=== PATIENT | male | born 1940 | race Caucasian/White ===

== ENCOUNTER → 2018-01-25 | Outpatient (CLI) | payer OTHER | LOC: FIMAGING 19:06 | PROVIDERS: ATTEND Family Medicine Sports Medicine | DX: J90 Pleural effusion, not elsewhere classified (principal) ==

== ENCOUNTER → 2018-02-06 | Outpatient (CLI) | payer OTHER | LOC: FIMAGING 07:19 | PROVIDERS: ATTEND Family Medicine Sports Medicine | DX: J90 Pleural effusion, not elsewhere classified (principal); I70.0 Atherosclerosis of aorta ==

== ENCOUNTER 2018-02-17 08:14 | Inpatient (IN) | payer OTHER ==
--- NOTE | 2018-02-17 08:30 | CPEKG ---
Heart Rate: 72 RR Interval: 833 P-R Interval: 156 QRSD Interval: 112 QT Interval: 384 QTC Interval: 421 P Collins: 3 QRS Collins: -61 T Wave Collins: 64 EKG Severity - ABNORMAL ECG - EKG Impression: SINUS RHYTHM EKG Impression: NONSPECIFIC IVCD WITH LAD EKG Impression: PROBABLE INFERIOR INFARCT, OLD EKG Impression: CONSIDER ANTEROSEPTAL INFARCT Electronically Signed By: Lisa Dumont 17-Feb-2018 15:01:56
--- NOTE | 2018-02-17 08:53 | EDPHY ---
H & P Stated Complaint: Sob, worse w/ exertion, R abd pain x months worse w/ movement Time Seen by Provider: 02/17/18 08:22 HPI/ROS: CHIEF COMPLAINT: Shortness of breath HISTORY OF PRESENT ILLNESS: 77-year-old male presents with shortness of breath. 2 months ago he had pneumonia, diagnosed by chest x-ray. Completed a course of abx. Since then, he has had gradually increasing shortness of breath. The shortness of breath occurs with any exertion and he is unable to do his usual activities. Associated with mild right-sided chest pain that occurs only with movement of his torso. No exertional chest pain. Outpatient CT scan on 02/06/18 revealed a large right pleural effusion. He has been referred to pulmonology and has an appointment in 1 month. Ongoing cough for 1 year. No fever. REVIEW OF SYSTEMS: complete 10 point ROS negative except at noted in the HPI - Personal History Current Tetanus/Diphtheria Vaccine: No Current Tetanus Diphtheria and Acellular Pertussis (TDAP): No - Medical/Surgical History Hx Asthma: No Hx Chronic Respiratory Disease: No Hx Diabetes: No Hx Cardiac Disease: No Hx Renal Disease: No Hx Cirrhosis: No Hx Alcoholism: No Hx HIV/AIDS: No Hx Splenectomy or Spleen Trauma: No Other PMH: NIDDM. hyperlipidemia. depression. appy - Social History Smoking Status: Former smoker (Stopped smoking 25 years ago) Additional Social History: - Physical Exam Exam: General Appearance: Alert, pleasant Eyes: Pupils equal and round, no conjunctival pallor or injection ENT, Mouth: Mucous membranes moist Neck: Normal inspection Respiratory: Decreased breath sounds on the right Cardiovascular: Regular rate and rhythm Gastrointestinal: Abdomen is soft and nontender Neurological: A&O, nonfocal exam Skin: Warm and dry, no rash Extremities: Nontender, no pedal edema Psychiatric: Mood and affect normal Constitutional: Initial Vital Signs Temperature (C) 36.8 C 02/17/18 08:17 Heart Rate 80 02/17/18 08:17 Respiratory Rate 18 02/17/18 08:17 Blood Pressure 132/77 H 02/17/18 08:17 O2 Sat (%) 90 L 02/17/18 08:17 O2 Delivery Mode Room Air O2 (L/minute) 2 Allergies/Adverse Reactions: No Known Allergies Allergy (Unverified 02/17/18 08:15) Home Medications: Medication Instructions Recorded Albuterol [Proventil Inhaler HFA 1 - 2 puffs IH Q4H #1 mdi 10/09/16 (*)] Azithromycin [Zithromax] 250 mg PO DAILY #6 tab 12/29/17 Atorvastatin Calcium [Lipitor 10 5 mg PO HS 02/17/18 mg (*)] Glimepiride [Amaryl 2 MG (*)] 2 mg PO DAILY 02/17/18 Lisinopril [Zestril 10 mg (*)] 10 mg PO DAILY 02/17/18 OLANZapine [Zyprexa] 2.5 mg PO HS 02/17/18 Medical Decision Making - Diagnostics EKG Interpretation: EKG interpreted by me reveals normal sinus rhythm, rate 72, inferior Q-waves, poor R-wave progression. Interpretation: Abnormal EKG Imaging Results: CXR: rt pleural effusion Imaging: I viewed and interpreted images myself ED Course/Re-evaluation: This pt presents with a large pleural effusion, now SOB at rest. Although this effusion occurred after pneumonia, he is afebrile/nontoxic and I do not suspect empyema. No clinical evidence for CHF. Concerning for malignancy. Given SOB and inability to do ADL's, will need thorascentesis/admission. Pt agrees with this plan. The hospitalist service was consulted for admission. Differential Diagnosis: Differential diagnosis includes though it is not limited to empyema, malignant effusion, CHF, hemothorax. - Data Points Laboratory Results: Laboratory Results 02/17/18 08:45 02/17/18 08:45 Medications Given: Discontinued Medications Acetaminophen (Tylenol) 650 mg PO Q4HRS PRN PRN Reason: Pain, Mild/Fever, Can Take PO Stop: 08/16/18 09:18 Last Admin: 02/18/18 11:58 Dose: 650 mg Atorvastatin Calcium (Lipitor) 5 mg PO HS [facility] Stop: 08/16/18 20:59 Last Admin: 02/18/18 20:02 Dose: 5 mg Azithromycin (Zithromax) 500 mg PO DAILY [facility] PRN Reason: Protocol Stop: 03/20/18 13:59 Last Admin: 02/19/18 08:01 Dose: 500 mg Glimepiride (Amaryl) 2 mg PO DAILY [facility] Stop: 08/17/18 08:59 Last Admin: 02/19/18 08:01 Dose: 2 mg Ceftriaxone Sodium/Dextrose (Rocephin 1 Gm (Premix)) 50 mls @ 100 mls/hr IV DAILY [facility] PRN Reason: Protocol Stop: 03/20/18 13:59 Last Admin: 02/19/18 08:01 Dose: 50 mls Insulin Human Lispro (Humalog Lispro) 0 unit SC TIDMEAL [facility] PRN Reason: Protocol Stop: 08/16/18 17:59 Last Admin: 02/19/18 13:00 Dose: 2 units Lisinopril (Zestril) 10 mg PO DAILY [facility] Stop: 08/17/18 08:59 Last Admin: 02/18/18 07:29 Dose: 10 mg Olanzapine (Zyprexa) 2.5 mg PO HS [facility] Stop: 08/16/18 20:59 Last Admin: 02/18/18 20:02 Dose: 2.5 mg Departure - Departure Disposition: [facility] Inpatient Acute Clinical Impression: Pleural effusion on right, Dyspnea on exertion Condition: Fair
[2018-02-17 08:56] LABS: PLATELET COUNT 259 10^3/uL (150-400)
[2018-02-17] MEDS ORDERED: ONDANSETRON DISINTEGRATING 4 MG TAB PO PRN (09:19)
[2018-02-17] MEDS ORDERED: ONDANSETRON 4 MG/2 ML VIAL IVP PRN (09:19)
[2018-02-17] MEDS ORDERED: ACETAMINOPHEN 325 MG TAB PO PRN (09:19)
[2018-02-17] MEDS ORDERED: LIDOCAINE 1% 300 MG/30 ML SDV ONE (10:34)
[2018-02-17 10:44] LABS: INR 1.16 (0.83-1.16)
--- NOTE | 2018-02-17 13:03 | PDRADPN ---
Radiology Procedure Note Date of Procedure: 02/17/18 Radiologist: Mina Parks Anesthesia: Local (Specify) Pre-op Diagnosis: parapneumonic effusion Post-op Diagnosis: same Indication: hypoxia Procedure: us guided thoracentesis Finding(s): large simple effusion (clear radha). access with 5F needle, 1500mL drained. Perhaps 100mL residual on US. Inf/Abcess present in the surg proc area at time of surgery?: No Complications: none Specimen(s): sent for lights, cell count, culture
--- NOTE | 2018-02-17 15:18 | GHP ---
[f rep st] HISTORY AND PHYSICAL DATE OF ADMISSION: 02/17/2018 CHIEF COMPLAINT: Shortness of breath, right pleural effusion. HPI: A pleasant 77-year-old male with a history of bronchitis, diabetes, hypertension with 2 months of gradual shortness of breath. He was diagnosed with pneumonia by his PCP 2 months ago and received antibiotic treatment. Since then, he has noticed progressive shortness of breath to the point where he can barely bend over without gasping for air. He cannot climb stairs due to it. He denies lower extremity or abdominal swelling. No PND. He has had a chronic cough for years, per he and his , with clear white sputum. Does report weight loss but cannot quantify. Denies fevers, chills, night sweats. He had been referred to a supervisor mending as an outpatient and has an appointment in 1 month. REVIEW OF SYSTEMS: I completed a 10-point review of systems, negative except as noted in HPI. PAST MEDICAL HISTORY: Bronchitis; diabetes, controlled on orals; hypertension. PAST SURGICAL HISTORY: Left foot surgery, tonsillectomy as a child. FAMILY HISTORY: Mother with stroke. Brother with prostate cancer. Sister with stomach cancer. SOCIAL HISTORY: Lives in [place] with his . Originally from [facility]. Has 4 children. 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 Smoked a pack to 2 for 35 years, quit 25 years ago. No alcohol or illicits. ALLERGIES: No known drug allergies. HOME MEDICATIONS: Atorvastatin 5 mg q.h.s., Amaryl 2 mg daily, Zyprexa 2.5 mg q.h.s., lisinopril 10 daily. PHYSICAL EXAM: VITAL SIGNS: Temperature 36.8, blood pressure 124/74, heart rate 90s, respirations 16, 95% on 2 L, now 90 on room air. GENERAL: He is well appearing, smiling, sitting up in bed, in no acute distress. HEENT: PERRLA. EOMI. Oropharynx clear. CV: Regular rate and rhythm. No murmurs, gallops, or rubs. No lower extremity edema. LUNGS: Decreased breath sounds at right base. No crackles or wheezing. ABDOMEN: Soft, nontender, nondistended. Positive bowel sounds. GI: Mild protrusion, right sided, not present when sitting up. No tenderness or hematoma. : No Yousif. MUSCULOSKELETAL: 5/5 upper and lower extremity strength. NEURO: 2-12 intact. PSYCH: Alert and oriented x3. LABS: WBC 7, hemoglobin 15, hematocrit 44, platelets 259. Coags: Within normal. Sodium 137, potassium 4.5, chloride 101, carbon dioxide 24, BUN 16, creatinine 0.6, glucose is 231. LFTs within normal. Albumin is 3.6, total protein 6.0. LDH is 278. BNP is 28. Chest x-ray: Personally reviewed by me. Moderate right-sided pulmonary effusion. ASSESSMENT/PLAN: 1. Right pleural effusion: Differential includes infection, heart failure versus malignancy. He does not endorse infectious symptoms at this time. He is afebrile without leukocytosis. His BNP is normal, so less indicative of heart failure. My concern would be malignancy given smoking history and weight loss. Status post thoracentesis, with 1500 mL removed. Cytology and other labs are still pending. Recent CT chest negative for mass. 2. Diabetes. Continue home medications. Sliding scale insulin here. 3. Hypertension. Lisinopril. 4. Diet. Regular. 5. Deep venous thrombosis prophylaxis. Sequential compression devices. 6. Disposition. Patient warrants observation admission given acute right pleural effusion, awaiting pleural studies, and continue pulse ox. /[id number]/MODL MTDD
[2018-02-17] MEDS ORDERED: D50W 25 GM/50 ML SYR IVP PRN (17:31)
[2018-02-17] MEDS: INSULIN LISPRO 100 UNIT/ML SC SCH (18:07)
[2018-02-17] MEDS: OLANZapine 2.5 MG TAB PO SCH (20:58)
[2018-02-17] MEDS: ATORVASTATIN CALCIUM 10 MG TAB PO SCH (20:58)
[2018-02-17] MEDS ORDERED: IOPAMIDOL (ISOVUE-300) 100 ML BTL ONE (21:59)
[2018-02-18] MEDS: GLIMEPIRIDE 2 MG TAB PO SCH (07:29)
[2018-02-18] MEDS: INSULIN LISPRO 100 UNIT/ML SC SCH ×3 (07:48→18:35)
[2018-02-18] MEDS ORDERED: LISINOPRIL 10 MG TAB PO SCH (09:00)
--- NOTE | 2018-02-18 10:29 | HOSPPROG ---
Hospitalist Progress Note Assessment/Plan: #AHRF: due to pleural effusion #Pleural effusion: exudative. Recent PNA, but no sxs now. Afebrile, no leukocytosis. Normal pH on fluild, glucose high. ORION pending. Normal kidney function, LFTs. -echo: -low-grade fever now. Blood cultures, UA. Treat for CAP with Azithr/CTX. CT chest pending -concern for cancer with weight loss. No mass on abd/pelvic CT #DM with hyperglycemia: cont home orals, SSI. Check a1c #HTN: borderline BP; hold Lisinopril #Diet: regular #DVT ppx: SCDs #Disp: inpatient eval for effusion, IV abx, CT, echo pending Subjective: sweaty with dizziness with low-grade temp 100.1 this afternoon Objective: Vital Signs Temp Pulse Resp BP Pulse Ox 37.3 C 107 H 18 119/83 H 90 L 02/18/18 07:25 02/18/18 07:25 02/18/18 07:25 02/18/18 07:25 02/18/18 07:25 Microbiology 02/17/18 09:18 Gram Stain - Final Thoracic Fluid - Aspirate 02/17/18 02/18/18 02/19/18 05:59 05:59 05:59 Intake Total 700 200 Output Total 1900 Balance -1200 200 PT 15.0 SEC (12.0-15.0) 02/17/18 08:45 INR 1.16 (0.83-1.16) 02/17/18 08:45 - Time Spent With Patient Time Spent with Patient: greater than 35 minutes Time Spent with Patient: Greater than 35 minutes spent on this patients care, greater than 50% of time spent counseling, educating, and coordinating care regarding the above mentioned plan. - Physical Exam Constitutional: no apparent distress Eyes: PERRL Ears, Nose, Mouth, Throat: moist mucous membranes Cardiovascular: regular rate and rhythym Respiratory: other (decreased BS right mid-lung to base) Gastrointestinal: normoactive bowel sounds, soft, non-tender abdomen Genitourinary: no bladder fullness Skin: warm, No no rashes or abrasions, No erythema, No rash Musculoskeletal: full muscle strength Neurologic: CN II-XII Intact Psychiatric: interacting appropriately ICD10 Worksheet Patient Problems: Problems Problem Status Onset Pleural effusion Acute - ICD10 Problem Qualifiers (1) Pleural effusion
--- NOTE | 2018-02-18 12:28 | ASMTCASEMG ---
Living Arrangements What is your living Answers: With Spouse arrangement? Who do you live with? Type Of Residence What kind of residence do Answers: House you live in? Discharge Plan Comments Coordination Status Comments Notes: Pt is a 77 y/o man admitted for shortness of breath and right pleural effusion. Pt will most likely d/c independent when medically stable. No therapies ordered at this time. CM available for changes. Plan: Independent Date Signed: 02/18/2018 12:27 PM Electronically Signed By:LATRELL Tolbert
[2018-02-18] MEDS: AZITHROMYCIN 250 MG TAB PO SCH (14:37)
--- NOTE | 2018-02-18 16:30 | PDMN ---
Medical Necessity Medical necessity: C/M review: Patient meets INPT criteria under MCG M-540 Pleural effusion, M-282 Pneumonia, community acquired: Acute - right pleural effusion -exudative, hypoxemic respiratory failure secondary to pleural effusion , low grade fever now, requiring 02/17/2018 US guided thoracentesis with 1500 ml drained in IR, pleural fluid yellow, slightly hazy, pleural Ph 7.4, pleural WBC 72, pleural VDH391, pleural total protein 3.8, pleural LDH 661, pleural glucose 173, blood cultures pending, UA pending, CT chest pending, echocardiogram pending, ORION pending, requiring ongoing treat ment for community acquired pneumonia with IV Ceftriaxone QD, oral Zithromax daily, pulse oximetry, supplemental O2, comorbid diabetes with hyperglycemia, hypertension, recent pneumonia, concern for cancer with weight loss. MD anticipates > 2 MN LOS for ongoing med nec for eval and TX of above. patient is Medicare Advantage which follows guidelines CMS puts forth.
[2018-02-18] MEDS: OLANZapine 2.5 MG TAB PO SCH (20:02)
[2018-02-18] MEDS: ATORVASTATIN CALCIUM 10 MG TAB PO SCH (20:02)
[2018-02-19 07:33] VITALS: BP 99/68
[2018-02-19] MEDS: INSULIN LISPRO 100 UNIT/ML SC SCH ×2 (08:00→13:00)
[2018-02-19] MEDS: GLIMEPIRIDE 2 MG TAB PO SCH (08:01)
[2018-02-19] MEDS: AZITHROMYCIN 250 MG TAB PO SCH (08:01)
--- NOTE | 2018-02-19 09:32 | ECHO ---
[email or web address] [address] [address] Main: [phone] Fax: Transthoracic Echocardiogram Name: JOSE ALONZO MR#: [id number] Study Date: 02/18/2018 Study Time: 04:55 PM Date of : 1940 Age: 77 year(s) Height: 177.8 cm (70 in.) Weight: 80.74 kg (178 lb.) BSA: 1.99 m2 Gender: Male Examination: Echo Indication: new right effusion. eval for valvular disease, rhf Image Quality: Adequate Contrast: Requested by: Julianna Sandoval BP: 106 mmHg/59 mmHg Heart Rate: Rhythm: Indication: new right effusion. eval for valvular disease, rhf Procedure Staff Class 1 Owner Operator: Julianna Vital [facility] Reading Physician: Brent Ruff MD Requesting Provider: Conclusions: Normal size left ventricle. Normal global systolic LV function. The ejection fraction is visually estimated to be 60 %. Mild tricuspid regurgitation is present. There is a pleural effusion present. Measurements: Chambers Valvular Assessment AV/MV Valvular Assessment TV/PV Normal Normal Normal Name Value Range Name Value Range Name Value Range Ao Casie (2D): 3.3 cm (1.4 cm-2.6 AV Vmax: 1.40 m/s (1 m/s-1.7 TR Vmax: 2.51 mm/s ( - ) cm) m/s) TR PGmax: 25 mmHg ( - ) IVSd (2D): 1.1 cm (0.6 cm-1.1 AV meanP mmHg ( - ) syst. PAP: 30 mmHg ( - ) cm) ANIBAL (VTI): 3.1 cm ( - ) PV Vmax: 0.92 m/s (0.6 m/s-0.9 LVDd (2D): 3.9 cm (4.2 cm-5.9 MV E Vmax: 0.58 m/s ( - ) m/s) cm) MV A Vmax: 0.85 m/s ( - ) PV PGmax: 3 mmHg ( - ) LVDs (2D): 2.6 cm (2.1 cm-4 MV E/A: 0.68 ( - ) cm) MV PHT: 0.049 s ( - ) LVPWd (2D): 1.0 cm (0.6 cm-1 cm) MVA (PHT): 4.5 s ( - ) LVOTd 2.1 cm 2.1 cm mm LVEF (BP): 65 % (>=55 %) Visual EF: 60 % RVDd(2D): 2.9 cm (1.9 cm-3.8 cmmm) Continued Measurements: Chambers Valvular Assessment AV/MV Valvular Assessment TV/PV Patient: JOSE ALONZO Study Date: 02/18/2018 Page 1 of 2 04:55 PM Name Value Name Value Name Value LADs: 2.8 cm MV DecTime: 180 m/s CVP (est.): 5 mmHg LADs Lon.8 cm MV E' Septal: 0.08 m/s LA Area: 13.8 cm2 MV E/E' Septal: 7.70 LA Volume: 37 ml MV E/E' Lateral: 8.20 LA Volume Index: 18.6 ml/m2 RA Area: 17.3 cm2 Additional Vessels Name Value Ao Ascendin.0 cm Inferior Vena Cava: 1.1 cm Findings: Left Ventricle: Normal size left ventricle. No LV hypertrophy. Normal global systolic LV function. The ejection fraction is visually estimated to be 60 %. No regional wall motion abnormality. Diastolic dysfunction is present. . Right Ventricle: Normal size right ventricle. Normal RV function. Left Atrium: The left atrium is normal in size. Right Atrium: The right atrium is normal in size. Mitral Valve: The mitral valve is normal in appearance and function. There is no significant mitral valve regurgitation. No mitral stenosis is present. Aortic Valve: The aortic valve is normal in appearance and function. There is no significant aortic valve regurgitation. No aortic valve stenosis is present. Tricuspid Valve: The tricuspid valve is normal in appearance and function. Mild tricuspid regurgitation is present. The pulmonary artery pressure is normal. Right ventricular systolic pressure measures 30mmHg. Pulmonic Valve: The pulmonic valve is normal in appearance and function. There is no pulmonic regurgitation seen. Aorta: The aorta is normal. Normal size aortic root measuring 3.3 cm. Normal size ascending aorta measuring 3.0 cm. IVC: The IVC is normal sized. Pericardium: No pericardial effusion. There is a pleural effusion present. Exam Comments: Patient difficulty remaining on left side. (No Signature Object) Patient: JOSE ALONZO Study Date: 02/18/2018 Page 2 of 2 04:55 PM [id number]
--- NOTE | 2018-02-19 13:54 | ASDISCHSUM ---
Discharge Information Plan Status:Home with No Needs Medically Cleared to Leave:02/19/2018 Discharge Date:02/19/2018 CM D/C Disposition:Home, Routine, Self-Care ADT D/C Disposition:Home, Routine, Self-Care Projected Discharge Date:02/19/2018 Transportation at D/C:Family Discharge Delay Reason: Follow-Up Date:02/19/2018 Discharge Slot: Final Diagnosis: Placement Information Patient Contact Information Contact Name:VASOPALMER Relationship: Address:[address] Work Phone: City:[place] [facility] Phone: State/Zip Code:[place] [address] Email: Financial Information Financial Class:Medicare Advantage Plans Primary Plan Desc:[facility] ADVANTAGE [employer] Primary Plan Number:[id number] Secondary Plan Desc: Secondary Plan Number: Assessment Information LACE LACE Length of stay for Answers: 2 days current admission Acuity / Level of Answers: Yes Care: Did the patient have an inpatient admission? Comorbidities - select Answers: Diabetes (uncontrolled or all that apply controlled) Other Notes: hypertension, # of Emergency department Answers: 1-2 visits in the last 6 months Score: 8 Date Signed: 02/19/2018 01:53 PM Electronically Signed By:MADDIE Wolf [facility] Initial CM Assessment Living Arrangements What is your living Answers: With Spouse arrangement? Who do you live with? Type Of Residence What kind of residence do Answers: House you live in? Discharge Plan Comments Coordination Status Comments Notes: Pt is a 77 y/o man admitted for shortness of breath and right pleural effusion. Pt will most likely d/c independent when medically stable. No therapies ordered at this time. CM available for changes. Plan: Independent Date Signed: 02/18/2018 12:27 PM Electronically Signed By:LATRELL Tolbert Case Management Discharge Plan Note Case Management Discharge Discharge Order Complete? Answers: Yes Patient to Obtain Answers: via Family Medications Transportation Arranged Answers: Family/Friends Family Notified Answers: Yes Discharge Comments Notes: Pt is discharging home today with his . He has no CM needs. IM explained and signed by pt. Copy to pt and in chart. Date Signed: 02/19/2018 01:51 PM Electronically Signed By:MADDIE Wolf Intervention Information
--- NOTE | 2018-02-19 14:12 | GDS ---
[f rep st] DISCHARGE SUMMARY DISCHARGE DIAGNOSES: 1. Acute hypoxic respiratory failure due to pleural effusion. 2. Right-sided pleural effusion, status post thoracentesis. 3. Diabetes with hyperglycemia. 4. Hypertension. PROCEDURE: Thoracentesis with 1500 cc taken off. HISTORY OF PRESENT ILLNESS: A pleasant 77-year-old male with history of bronchitis, diabetes, hypert ension, and 2 months gradual shortness of breath. He was diagnosed with pneumonia by his PCP two mon ths ago and received antibiotic treatment. Since then has had progressive shortness of breath to the point where he can barely bend over without gasping for air. It is very difficult to climb stairs w ithout getting winded. Denies lower extremity edema, lower extremity or abdominal swelling. No PND. He has had a chronic dry cough for years. Does have some clear sputum. Does report weight loss bu t cannot quantify. Denies fevers, chills, or sweats. HOSPITAL COURSE BY PROBLEM: 1. Right-sided pleural effusion: This was seen on CT 02/06/2018. At that time, he was treated for pneumonia. X-ray here revealed large effusion and status post thoracentesis. Fluid consistent with exudates. Does not endorse infection symptoms at this time. He had a very low-grade fever here, but no organisms on Gram stain and blood cultures remain negative. pH was normal and glucose was elevat ed on fluid; thus, not an empyema. Concern was for malignancy with weight loss. CT chest, abdomen, and pelvis is negative for mass. Cytology is pending. He will follow up with his PCP. He has an ap pointment with Dr. aCstillo on March 06, 2018 for followup. Room screening negative thus far. LFTs, kid nima function is normal. Echo showed mild diastolic heart failure. 2. Weight loss. Again, concern for possible malignancy. Plan as stated above. 3. Acute hypoxic respiratory failure. Secondary pleural effusion. This is resolved. 4. Diabetes with hyperglycemia. Resume home medications. A1c is pending. He can follow up with ms s PCP. 5. Hypertension. He has had soft blood pressures here. Will have him hold lisinopril for a couple days. DISPOSITION: The patient is stable for discharge home. He will be discharged with his . NEW MEDICATIONS: None. LABS PENDIN. Cytology. 2. ORION. FOLLOWUP: 1. Dr. Fransisco Castillo on March 06, 2018. 2. Dr. Arnett, his PCP. RETURN PRECAUTIONS: Productive cough, fevers, increased shortness of breath. PHYSICAL EXAM: Today, temperature 36.8, blood pressure is 100/57, heart rate in the 80s, respiration s 16, 92% on room air. GENERAL: Well-appearing, in no acute distress. HEENT: PERRLA. Moist mucou s membranes. CV: Regular rate and rhythm. LUNGS: Decreased breath sounds, mid right lung to base. ABDOMEN: Soft, nontender, nondistended. Positive bowel sounds. : No Yousif. MUSCULOSKELETAL: 5/5 upper and lower extremity strength. NEUROLOGIC: 2 through 12 intact. PSYCH: Alert and orient ed x3. Time spent on discharge: Greater than 35 minutes, counseling patient and his on pending studies , Followup plan and coordinating discharge. /[id number]/MODL
== END 2018-02-19 15:14 | disposition home or self-care (01) | DRG 186 ==
LOC: OBSVTOIN 09:09 → INTOOBSV 09:09 → F3N 10:03
PROVIDERS: ADMIT Internal Medicine; ATTEND Internal Medicine
PROC: 0W993ZX Drainage of Right Pleural Cavity, Percutaneous Approach, Diagnostic (ICD-10-PCS; principal; 2018-02-17)
DX: J90 Pleural effusion, not elsewhere classified (principal); J96.01 Acute respiratory failure with hypoxia; E11.65 Type 2 diabetes mellitus with hyperglycemia; I10 Essential (primary) hypertension; E78.5 Hyperlipidemia, unspecified; Z87.891 Personal history of nicotine dependence
CPT/HCPCS: G0378; J0696; J1815; Q9967

== ENCOUNTER 2018-03-08 14:31 | Inpatient (IN) | payer OTHER ==
--- NOTE | 2018-03-08 15:06 | EDPHY ---
H & P Stated Complaint: COUGH/SOB SEEN02/19 HAD ?PLEURAL EFFUSION SEEING [employer]EL [employer] 03/22 Time Seen by Provider: 03/08/18 15:05 HPI/ROS: CHIEF COMPLAINT: Cough, dyspnea, history of recent right pleural effusion and thoracentesis HISTORY OF PRESENT ILLNESS: The patient presents to the ED with recurrent shortness of breath and dyspnea. The patient was in the hospital at end of January with a moderate size right pleural effusion. He underwent a thoracentesis with 1500 mL of fluid removed felt to be most consistent with a transudate. The patient was discharged home with plans to follow up with Pulmonary. The patient denies any acute cough. He does report dyspnea. He denies any lower extremity swelling or abdominal pain. The patient did have a fairly extensive workup during his last hospitalization with a chest CT scan. Cytology was negative for malignant cells. REVIEW OF SYSTEMS: A comprehensive 10 point review of systems is otherwise negative aside from elements mentioned in the history of present illness. Source: Patient - Personal History Current Tetanus Diphtheria and Acellular Pertussis (TDAP): Unsure - Medical/Surgical History Hx Asthma: No Hx Chronic Respiratory Disease: No Hx Diabetes: Yes Hx Cardiac Disease: No Hx Renal Disease: No Hx Cirrhosis: No Hx Alcoholism: No Hx HIV/AIDS: No Hx Splenectomy or Spleen Trauma: No Other PMH: High chol, DM - Social History Smoking Status: Former smoker - Physical Exam Exam: General Appearance: Alert, no distress Eyes: Pupils equal and round no pallor or injection ENT, Mouth: Mucous membranes moist Respiratory: Absent breath sounds right lung field Cardiovascular: Regular rate and rhythm Gastrointestinal: Abdomen is soft and nontender, no masses, bowel sounds normal Neurological: A&O, normal motor function, normal sensory exam, normal cranial nerves Skin: Warm and dry, no rashes Musculoskeletal: Neck is supple nontender Extremities: symmetrical, full range of motion Constitutional: Initial Vital Signs Temperature (C) 36.9 C 03/08/18 14:40 Heart Rate 102 H 03/08/18 14:40 Respiratory Rate 20 03/08/18 14:40 Blood Pressure 138/82 H 03/08/18 14:40 O2 Sat (%) 90 L 03/08/18 14:40 O2 Delivery Mode Room Air Allergies/Adverse Reactions: No Known Allergies Allergy (Verified 03/08/18 14:39) Home Medications: Medication Instructions Recorded Albuterol [Proventil Inhaler HFA 1 - 2 puffs IH Q4H #1 mdi 10/09/16 (*)] Atorvastatin Calcium [Lipitor 10 5 mg PO HS 02/17/18 mg (*)] Glimepiride [Amaryl 2 MG (*)] 2 mg PO DAILY 02/17/18 Lisinopril [Zestril 10 mg (*)] 10 mg PO DAILY 02/17/18 OLANZapine [Zyprexa] 2.5 mg PO HS 02/17/18 Medical Decision Making - Diagnostics Imaging Results: Imaging Impressions Chest X-Ray 03/08/18 15:08 Impression: Large recurrent right-sided pleural effusion, with superimposed atelectasis and/or infiltrate not excluded. Chest x-ray PA lateral: Images reviewed by myself, large recurrent right pleural effusion. ED Course/Re-evaluation: The patient presents to the ED with a recurrent large pleural effusion. The patient had an extensive workup in this appears to be transudative effusion of uncertain origin. The patient will require admission to the hospital for further evaluation management. Consultation is made with the hospitalist service for admission. I have also consulted with Dr. Fontenot to evaluate the patient to see if pleurodesis is indicated. I re-evaluated the patient at 4:15 p.m.. He did received supplemental nasal cannula oxygen for mild hypoxemia which corrects with 2 liters/minute. Consultation was made with Dr. Dejan Grajeda from the hospitalist service who will admit the patient. Differential Diagnosis: Differential diagnosis considered includes pleural effusion, pneumonia, pneumothorax, intra thoracic malignancy - Data Points Laboratory Results: Laboratory Results 03/08/18 15:31 03/08/18 15:31 03/08/18 03/08/18 15:31 15:31 WBC 8.08 10^3/uL 10^3/uL (3.80-9.50) RBC 5.26 10^6/uL 10^6/uL (4.40-6.38) Hgb 15.2 g/dL g/dL (13.7-17.5) Hct 45.3 % % (40.0-51.0) MCV 86.1 fL fL (81.5-99.8) MCH 28.9 pg pg (27.9-34.1) MCHC 33.6 g/dL g/dL (32.4-36.7) RDW 12.6 % % (11.5-15.2) Plt Count 334 10^3/uL 10^3/uL (150-400) MPV 9.3 fL fL (8.7-11.7) Neut % (Auto) 67.3 % % (39.3-74.2) Lymph % (Auto) 22.3 % % (15.0-45.0) Dillon % (Auto) 7.7 % % (4.5-13.0) Eos % (Auto) 1.7 % % (0.6-7.6) Baso % (Auto) 0.4 % % (0.3-1.7) Nucleat RBC Rel Count 0.0 % % (0.0-0.2) Absolute Neuts (auto) 5.44 10^3/uL 10^3/uL (1.70-6.50) Absolute Lymphs (auto) 1.80 10^3/uL 10^3/uL (1.00-3.00) Absolute Monos (auto) 0.62 10^3/uL 10^3/uL (0.30-0.80) Absolute Eos (auto) 0.14 10^3/uL 10^3/uL (0.03-0.40) Absolute Basos (auto) 0.03 10^3/uL 10^3/uL (0.02-0.10) Absolute Nucleated RBC 0.00 10^3/uL 10^3/uL (0-0.01) Immature Gran % 0.6 % % (0.0-1.1) Immature Gran # 0.05 10^3/uL 10^3/uL (0.00-0.10) Sodium 135 mEq/L mEq/L (135-145) Potassium 4.8 mEq/L mEq/L (3.3-5.0) Chloride 100 mEq/L mEq/L (97-110) Carbon Dioxide 24 mEq/l mEq/l (22-31) Anion Gap 11 mEq/L mEq/L (8-16) BUN 18 mg/dL mg/dL (7-23) Creatinine 0.8 mg/dL mg/dL (0.7-1.3) Estimated GFR > 60 Glucose 310 mg/dL H mg/dL (70-100) Calcium 8.6 mg/dL mg/dL (8.5-10.4) Departure - Departure Disposition: [facility] Inpatient Acute Clinical Impression: Recurrent pleural effusion on right, Hypoxemia Condition: Fair Referrals: Lenard Arnett MD [Primary Care Provider] - As per Instructions
--- NOTE | 2018-03-08 15:26 | CPEKG ---
Heart Rate: 103 RR Interval: 583 P-R Interval: 156 QRSD Interval: 108 QT Interval: 340 QTC Interval: 445 P Markham: 45 QRS Markham: -62 T Wave Markham: 72 EKG Severity - ABNORMAL ECG - EKG Impression: SINUS TACHYCARDIA EKG Impression: LEFT ANTERIOR FASCICULAR BLOCK EKG Impression: ANTERIOR INFARCT, AGE INDETERMINATE Electronically Signed By: Eben Young 08-Mar-2018 16:50:45
[2018-03-08 15:46] LABS: PLATELET COUNT 334 10^3/uL (150-400)
[2018-03-08] MEDS ORDERED: ONDANSETRON DISINTEGRATING 4 MG TAB PO PRN (16:57)
[2018-03-08] MEDS ORDERED: ONDANSETRON 4 MG/2 ML VIAL IVP PRN (16:57)
[2018-03-08] MEDS ORDERED: ACETAMINOPHEN 325 MG TAB PO PRN (16:57)
[2018-03-08] MEDS ORDERED: D50W 25 GM/50 ML SYR IVP PRN (17:02)
--- NOTE | 2018-03-08 17:39 | SOAPPROG ---
SOAP Progress Note Assessment/Plan: Assessment: recurrent rt pleural effusion Plan:vats in am 03/08/18 17:38 Objective: Vital Signs Temp Pulse Resp BP Pulse Ox 36.6 C 76 18 132/87 H 94 03/08/18 17:25 03/08/18 17:25 03/08/18 17:25 03/08/18 17:25 03/08/18 17:25 03/07/18 03/08/18 03/09/18 05:59 05:59 05:59 Intake Total 0 Balance 0 ICD10 Worksheet Patient Problems: Problems Problem Status Onset Hypoxemia Acute Recurrent pleural effusion on right Acute Dyspnea on exertion Acute Pleural effusion Acute Pleural effusion on right Acute
--- NOTE | 2018-03-08 17:56 | GHP ---
[f rep st] HISTORY AND PHYSICAL DATE OF ADMISSION: 03/08/2018 HISTORY OF PRESENT ILLNESS: The patient is a pleasant 77-year-old with a history of type 2 diabetes and recent admission for pleural effusion. He was admitted at the end of January with right-sided pleura l effusion. At that time, it was consistent with an exudative effusion but not empyema. ORION was neg ative. Rheumatoid factor was negative. He also had negative cytology at that time. There was donald rn for malignancy, given weight loss, and he had a chest, abdomen, pelvis CT that showed no evidence of malignancy. He has been doing well. He had an outpatient appointment with Dr. Fransisco Castillo that got rescheduled. Patient has not had fever, chills, cough productive of white sputum, has not had nausea, vomiting, diarrhea. He does say that he has lost some weight over the last year. It sounds like he has not particularly been trying to lose weight. No drenching night sweats. No lower extremity edema. REVIEW OF SYSTEMS: Complete 10-point review of systems conducted, negative except as noted in the HP I. PAST MEDICAL HISTORY: 1. Right-sided pleural effusion. 2. Type 2 diabetes. 3. Depression. 4. Hypertension. FAMILY HISTORY: Notable for mother had a stroke, brother has prostate cancer. SOCIAL HISTORY: He lives in [place] with his . Originally from [facility]. Four children. Smoked a pack a day for 25 years, quit 25 years ago. No alcohol. ALLERGIES: He has no known drug allergies. HOME MEDICATIONS: Atorvastatin, glimepiride, Zyprexa, lisinopril. PHYSICAL EXAMINATION: VITAL SIGNS: Temp 36.9, blood pressure 138/82, pulse 102, breathing 20 times a minute, 90% on room air. GENERAL: No acute distress. HEENT: Sclerae anicteric. Oropharynx shaun r. Mucous membranes moist. NECK: Supple. No lymphadenopathy or JVD. LUNGS: Left lung is clear. Right lung, about mcfp through the lung morales is absent breath sounds with crackles just above t hat. HEART: S1, S2. ABDOMEN: Soft, nontender, nondistended. LOWER EXTREMITIES: Trace edema bila terally. Calves are nontender. SKIN: Without rash. NEUROLOGIC: Nonfocal. DIAGNOSTICS: White count 8, hematocrit is 45, platelets are 334,000. INR a month ago was 1.16. Sod ium 135, potassium 4.8, chloride 100, bicarb 24, BUN 18, creatinine 0.8, glucose elevated at 310. Chest x-ray interpreted by me shows a large right-sided pleural effusion with some atelectasis above it. EKG interpreted by me shows sinus tach with left anterior fascicular block. I have discussed the case with Dr. Hong Fontenot, Dr. Rogelio Young. ASSESSMENT/PLAN: A 77-year-old gentleman with right-sided pleural effusion. 1. Pleural effusion. This is recurrent, possibly parapneumonic. However, I have concern for other etiologies. I have spoken to Dr. Fontenot who will perform a video-assisted thorascopic surgery with pl eural biopsy. We have elected to hold off on pleurodesis at the time until a diagnosis is clear. I think I will hold on further malignancy workup, given his normal CTs performed during his last admiss ion. 2. Diabetes. He has elevated blood sugar now. Will hold his oral agents, give him sliding scale. 3. Hypertension. Will continue his amlodipine. I suspect this is the etiology of his lower extremi ty edema. 4. Prophylaxis. Pharmacologic prophylaxis indicated but will do sequential compression devices for now, given his upcoming need for surgery. 5. Disposition. Inpatient status. /[id number]/MODL
[2018-03-08] MEDS ORDERED: ceFAZolin 2 GM/SWFI 2 GM/20 ML SYR IVP ONE (19:49)
[2018-03-08] MEDS: INSULIN LISPRO 100 UNIT/ML SC SCH (20:15)
[2018-03-08] MEDS: OLANZapine 2.5 MG TAB PO SCH (20:16)
[2018-03-08] MEDS: ATORVASTATIN CALCIUM 10 MG TAB PO SCH (20:16)
[2018-03-08] MEDS: ALBUTEROL 60 PUFFS/8 GM MDI IH SCH ×2 (21:06→23:25)
[2018-03-09] MEDS: ALBUTEROL 60 PUFFS/8 GM MDI IH SCH (00:50)
[2018-03-09] MEDS ORDERED: ALBUTEROL 60 PUFFS/8 GM MDI IH PRN (01:32)
[2018-03-09 05:31] LABS: PLATELET COUNT 300 10^3/uL (150-400)
[2018-03-09 05:54] LABS: INR 1.2 (0.83-1.16); PROTIME(PATIENT) 15.4 SEC (12.0-15.0)
[2018-03-09] MEDS: INSULIN LISPRO 100 UNIT/ML SC SCH ×4 (07:41→18:12)
[2018-03-09] MEDS: LISINOPRIL 10 MG TAB PO SCH (08:12)
--- NOTE | 2018-03-09 09:05 | HOSPPROG ---
Hospitalist Progress Note Assessment/Plan: #Recurrent right pleural effusion -recent admission with negative evaluation including: ORION, RF, gram-stain, cytology. No e/o malignancy on CT chest/a/p -VATs done today with chest tube placed. Awaiting culture data #DM: A1c 9%. Nutrition consult, Lispro #Acute hypoxic resp failure: due to effusion #HTN: Lisinopril #DVT ppx: SCDs #Disp: inpatient admission for chest tube, cultures pending Subjective: SOB much improved. s/p VATs this morning with chest tube Objective: Vital Signs Temp Pulse Resp BP Pulse Ox 36.7 C 73 16 121/74 H 90 L 03/09/18 07:42 03/09/18 07:42 03/09/18 07:42 03/09/18 08:12 03/09/18 07:42 Laboratory Results 03/09/18 05:05 03/09/18 05:05 03/08/18 03/09/18 03/10/18 05:59 05:59 05:59 Intake Total 700 Balance 700 PT 15.4 SEC (12.0-15.0) H 03/09/18 05:05 INR 1.20 (0.83-1.16) H 03/09/18 05:05 - Time Spent With Patient Time Spent with Patient: greater than 35 minutes Time Spent with Patient: Greater than 35 minutes spent on this patients care, greater than 50% of time spent counseling, educating, and coordinating care regarding the above mentioned plan. - Physical Exam Constitutional: no apparent distress Eyes: PERRL, other (mild periorbital bruising left eye) Ears, Nose, Mouth, Throat: moist mucous membranes Cardiovascular: regular rate and rhythym Respiratory: other (decreased BS right base. CT in place) Gastrointestinal: normoactive bowel sounds Genitourinary: no bladder fullness Skin: warm Musculoskeletal: full muscle strength Neurologic: AAOx3, CN II-XII Intact ICD10 Worksheet Patient Problems: Problems Problem Status Onset Pleural effusion Acute Pleural effusion on right Acute Dyspnea on exertion Acute Recurrent pleural effusion on right Acute Hypoxemia Acute
[2018-03-09] MEDS ORDERED: LR 1,000 ML IV ONE (09:39)
[2018-03-09] MEDS ORDERED: CEFAZOLIN 2 GM/DEXTROSE/100 ML BAG IV ONE (09:42)
[2018-03-09] MEDS ORDERED: BUPIVACAINE/EPI 0.5% 30 ML SDV ONE (10:15)
--- NOTE | 2018-03-09 10:20 | PDANEPAE ---
ANE Past Medical History - Cardiovascular History Hx Hypertension: Yes Hx Arrhythmias: No Hx Chest Pain: No Hx Coronary Artery / Peripheral Vascular Disease: No Hx CHF / Valvular Disease: No Hx Palpitations: No - Pulmonary History Hx COPD: No Hx Asthma/Reactive Airway Disease: Yes Hx Recent Upper Respiratory Infection: Yes Hx Oxygen in Use at Home: No Hx Sleep Apnea: No Sleep Apnea Screening Result - Last Documented: Negative - Endocrine History Hx Diabetes: Yes Hypothyroid: No Hyperthyroid: No Obesity: no - GI History GERD: no Hx Gastrointestinal Disorders: No - Other Health History Other Health History: dyslipidemia - Chronic Pain History Chronic Pain: No ANE Review of Systems Review of Systems: - Exercise capacity Exercise capacity: >=4 METS METS (RN): 4 METS - Systems Respiratory: Reports: shortness of breath ANE Patient History - Allergies Allergies/Adverse Reactions: No Known Allergies Allergy (Verified 03/08/18 14:39) - Home Medications Home Medications: Atorvastatin Calcium [Lipitor 10 mg (*)] 5 mg PO HS 02/17/18 [Last Taken ] Glimepiride [Amaryl 2 MG (*)] 2 mg PO DAILY 02/17/18 [Last Taken 03/08/18] Lisinopril [Zestril 10 mg (*)] 10 mg PO DAILY 02/17/18 [Last Taken 03/08/18] OLANZapine [Zyprexa] 2.5 mg PO HS 02/17/18 [Last Taken 03/07/18] - NPO status NPO Since - Liquids (Date): 03/09/18 NPO Since - Liquids (Time): 00:00 NPO Since - Solids (Date): 03/09/18 NPO Since - Solids (Time): 00:00 - Anes Hx Anes Hx: no prior problems - Smoking Hx Smoking Status: Former smoker Marijuana use: No - Alcohol Use Alcohol Use: Occasionally - Family Anes Hx Family Anes Hx: neg - N/A ANE Labs/Vital Signs - Labs Result Diagrams: 03/09/18 05:05 03/09/18 05:05 - Vital Signs Blood Pressure: 121/74 Heart Rate: 73 Respiratory Rate: 16 O2 Sat (%): 90 Height: 165.1 cm Weight: 78.018 kg ANE Physical Exam - Airway Neck exam: FROM Mallampati Score: Class 2 Mouth exam: normal dental/mouth exam - Pulmonary Pulmonary: reduced air movement (R ) - Cardiovascular Cardiovascular: regular rate and rhythym, no murmur, rub, or gallop - ASA Status ASA Status: III (R markedly decreased breath sounds. L CTA) ANE Anesthesia Plan Anesthesia Plan: general endotracheal anesthesia Specialized Airway: double lumen tube Total IV Anesthesia: No
[2018-03-09] MEDS ORDERED: PROPOFOL 200 MG/20 ML VIAL ONE (10:37)
[2018-03-09] MEDS ORDERED: fentaNYL 100 MCG/2 ML INJ ONE (10:37)
[2018-03-09] MEDS ORDERED: ROCURONIUM 50 MG/5 ML VIAL ONE (10:40)
[2018-03-09] MEDS ORDERED: ONDANSETRON 4 MG/2 ML VIAL ONE (10:40)
[2018-03-09] MEDS ORDERED: LIDOCAINE 2% 5 ML SDV ONE (10:41)
[2018-03-09] MEDS ORDERED: GLYCOPYRROLATE 0.2 MG/1 ML VIAL ONE ×2 (10:43)
[2018-03-09] MEDS ORDERED: ESMOLOL HCL 100 MG/10 ML VIAL IV ONE (11:09)
[2018-03-09] MEDS ORDERED: fentaNYL 250 MCG/5 ML INJ ONE (11:34)
[2018-03-09] MEDS ORDERED: fentaNYL 100 MCG/2 ML INJ IVP PRN (11:41)
[2018-03-09] MEDS ORDERED: ALBUTEROL 3 ML DEYVIAL IH PRN (11:41)
[2018-03-09] MEDS ORDERED: LABETALOL HCL 5 MG/ML 20 ML MDV IVP PRN (11:41)
[2018-03-09] MEDS ORDERED: PROMETHAZINE HCL 25 MG/ML INJ IVP PRN (11:41)
[2018-03-09] MEDS ORDERED: ACETAMINOPHEN 500 MG TAB PO PRN (11:41)
[2018-03-09] MEDS ORDERED: ONDANSETRON 4 MG/2 ML VIAL IVP PRN (11:41)
[2018-03-09] MEDS ORDERED: NALOXONE HCL 0.4 MG/ML INJ IVP PRN (11:41)
[2018-03-09] MEDS ORDERED: HYDROCODONE/APAP 5/325 TAB PO PRN (11:41)
[2018-03-09] MEDS ORDERED: oxyCODONE IR 5 MG TAB PO PRN (11:41)
[2018-03-09] MEDS ORDERED: PHENYLEPHRINE HCL 100 MCG/ML SYR IVP PRN (11:41)
[2018-03-09] MEDS ORDERED: LR 500 ML IV PRN (11:41)
[2018-03-09] MEDS ORDERED: PROPOFOL/EMULSION 500 MG/50 ML BOTTLE IV ONE (11:49)
[2018-03-09] MEDS ORDERED: REMIFENTANIL HCL 1 MG VIAL ONE (11:49)
[2018-03-09] MEDS ORDERED: PHENYLEPHRINE HCL 100 MCG/ML SYR ONE (11:59)
[2018-03-09] MEDS ORDERED: KETOROLAC 30 MG/1 ML SDV ONE (12:28)
--- NOTE | 2018-03-09 12:52 | POSTOPPROG ---
Post Op Note Date of Operation: 03/09/18 Surgeon: Dimitry Fontenot Metal Polisher: Fanny Anesthesiologist: Abram Anesthesia: GET(General Endotracheal) Pre-op Diagnosis: Pleural effusion, empyema Post-op Diagnosis: same Indication: same Procedure: Right VATS with decortication, fluid culture, wedge bx, pleural bx Findings: Diffuse pleural plaquing, suspicious for malgnancy Inf/Abcess present in the surg proc area at time of surgery?: Yes Depth: Organ Space EBL: Minimal Drains: Other (Right chest tube)
--- NOTE | 2018-03-09 14:17 | ASMTCMCOM ---
CM Note CM Note Notes: Pt has been admitted with R pleural effusion. He was here in January for same. He has a hx of DM2, depression, HTN. He lives with his . He is scheduled for a VATS today. CM will follow for any d/c needs. Date Signed: 03/09/2018 02:17 PM Electronically Signed By:MADDIE Wolf
[2018-03-09] MEDS: HYDROmorphONE/DILAUDID 1 MG/ML INJ IVP PRN (14:18)
--- NOTE | 2018-03-09 14:31 | PDMN ---
Medical Necessity Medical necessity: MCG: M540 pleural effusion: pleural effusion with empyema, with immediate [id number]; A-2 days - R VATS with decortication, fluid culture, wedge bx, pleural bx.,
--- NOTE | 2018-03-09 16:16 | GCON ---
[f rep st] CONSULTATION CHEST CONSULTATION REASON FOR CONSULTATION: Status post decortication and pleural biopsy. HISTORY OF PRESENT ILLNESS: The patient is an extremely pleasant 77-year-old white male with a past medical history of diabetes, depression, and hypertension. He had a recent admission for a pleural e ffusion. He was admitted on 03/08/2018. General Surgery was subsequently consulted. He underwent a right VATS with decortication, wedge biopsy, and a pleural biopsy. Also, at that time, they found d iffuse pleural plaquing. In discussion with the patient, he states that he feels quite well. He adm its to some chest pain, predominantly with deep inspiration or cough. There is no fever or night swe ats. No nausea, vomiting, or diarrhea. He denies being breathless. REVIEW OF SYSTEMS: Ten-point review of systems was performed and is negative, except for what is lis bola in the HPI. PAST MEDICAL HISTORY: Significant for diabetes, depression, and hypertension. FAMILY HISTORY: Noncontributory. ALLERGIES: No known allergies to medications. SOCIAL HISTORY: Twenty-five pack year smoker, quit over 25 years ago. No significant alcohol use. 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 He has no known asbestos exposure. He resides in [place] [facility], but he is originally from [facility]. MEDICATIONS: At home, include atorvastatin, glimepiride, Zyprexa, and lisinopril. PHYSICAL EXAM: VITAL SIGNS: Blood pressure 134/81, pulse 92, respirations 20, temperature 36.4, oxy gen saturation 96% on 2.5 L. GENERAL: He is a well-developed, well-nourished 77-year-old white male who is resting comfortably in nasal cannula oxygen. HEENT: Eyes: PERRLA, EOMI. Throat shows no e rythema or tonsillar hypertrophy. NECK: Supple. There is no cervical adenopathy. HEART: Regular rate and rhythm, without murmurs, rubs, or gallops. LUNGS: Diminished breath sounds. A few crackle s on the left. ABDOMEN: Soft, nontender. Bowel sounds are present in all 4 quadrants. EXTREMITIES : There is no clubbing, cyanosis, or edema. LABORATORY DATA: White count is 7.6, hemoglobin 13, hematocrit 40. Platelet count is 300. INR 1.2. Sodium 135, potassium 4.2, chloride 107, CO2 27, BUN 17, creatinine 0.7. Glucose is 166. IMPRESSION: 1. Empyema and right pleural effusion. 2. Status post decortication, wedge biopsy, and pleural biopsy. Visual examination is questionable for malignancy. 3. Diabetes. 4. Depression. 5. Hypertension. RECOMMENDATIONS: 1. Adequate pain control. 2. Continue supplemental oxygen. 3. DVT and PE prophylaxis. 4. Stress ulcer prophylaxis. 5. Early ambulation. 6. Await pathology report. /[id number]/MODL
[2018-03-09] MEDS: ATORVASTATIN CALCIUM 10 MG TAB PO SCH (21:20)
[2018-03-09] MEDS: OLANZapine 2.5 MG TAB PO SCH (21:21)
[2018-03-10] MEDS ORDERED: diphenhydrAMINE 25 MG CAP PO PRN (01:44)
[2018-03-10] MEDS: MELATONIN 3 MG TAB PO PRN (01:57)
[2018-03-10] MEDS: HYDROmorphONE/DILAUDID 1 MG/ML INJ IVP PRN ×2 (04:04→15:01)
[2018-03-10] MEDS: INSULIN LISPRO 100 UNIT/ML SC SCH ×3 (08:02→18:15)
[2018-03-10] MEDS: LISINOPRIL 10 MG TAB PO SCH (08:03)
--- NOTE | 2018-03-10 09:04 | POSTANESTH ---
Post Anesthetic Evaluation Cardiovascular Status: Normal, Stable Respiratory Status: Normal, Stable Level of Consciousness/Mental Status: Can Participate in Eval Pain Control: Adequate, Prn Tx Ordered Nausea/Vomiting Control: Adequate, Prn Tx Ordered Complications Possibly Related to Anesthesia: None Noted
[2018-03-10] MEDS: oxyCODONE IR 5 MG TAB PO PRN ×2 (10:06→14:19)
--- NOTE | 2018-03-10 11:31 | SOAPPROG ---
SOAP Progress Note Assessment/Plan: Assessment/plan: * Empyema * Status post VATS decortication with wedge biopsy him pleural biopsy -pathology is sterile pending * Chest tube-still with air leak -continue suction * Diabetes * Depression * Hypertension * VT prophylaxis * Stress ulcer prophylaxis * Ambulation Subjective: Sitting up in chair. Pain well controlled. Denies any dyspnea. Objective: Vital Signs Temp Pulse Resp BP Pulse Ox 37.1 C 111 H 20 103/61 93 03/10/18 11:15 03/10/18 11:15 03/10/18 11:15 03/10/18 11:15 03/10/18 11:15 Microbiology 03/09/18 12:10 Gram Stain - Final Pleural Fluid - Aspirate 03/09/18 12:10 Mycobacterial Smear (JANINA) - Final Pleural Fluid - Aspirate Laboratory Results 03/09/18 05:05 03/09/18 05:05 03/09/18 03/10/18 03/11/18 05:59 05:59 05:59 Intake Total 700 1650 Output Total 1335 Balance 700 315 PT 15.4 SEC (12.0-15.0) H 03/09/18 05:05 INR 1.20 (0.83-1.16) H 03/09/18 05:05 - Time Spent With Patient Time Spent With Patient: 25 min of time spent with patient, over 1/2 involved with coordination of care or counseling Physical Exam - Physical Exam General Appearance: WD/WN, alert, no apparent distress EENT: PERRL/EOMI Neck: non-tender, full range of motion, supple, normal inspection Respiratory: crackles (Few), No respiratory distress, No wheezing Cardiac/Chest: normal peripheral pulses, regular rate, rhythm, systolic murmur Peripheral Pulses: 2+: carotid (R), carotid (L), femoral (R), femoral (L), dorsalis-pedis (R), dorsalis-pedis (L) Abdomen: normal bowel sounds, non-tender, soft Male Genitalia: deferred Rectal: deferred Skin: normal color, warm/dry Extremities: normal range of motion, non-tender, normal inspection, normal capillary refill Neuro/Psych: no motor/sensory deficits ICD10 Worksheet Patient Problems: Problems Problem Status Onset Hypoxemia Acute Recurrent pleural effusion on right Acute Dyspnea on exertion Acute Pleural effusion Acute Pleural effusion on right Acute
--- NOTE | 2018-03-10 15:41 | HOSPPROG ---
Hospitalist Progress Note Assessment/Plan: #Empyema -recent admission with negative evaluation including: ORION, RF, gram-stain, cytology. No e/o malignancy on CT chest/a/p -VATs 03/09 with chest tube. No acid-fast bacilli seen. Cultures pending #DM: A1c 9%. Nutrition consult, Lispro #Acute hypoxic resp failure: due to effusion #HTN: low BPs here, stop Lisinopril #DVT ppx: SCDs #Disp: inpatient admission for chest tube, cultures pending Subjective: SOB improved Objective: Vital Signs Temp Pulse Resp BP Pulse Ox 37.4 C 91 24 H 122/68 H 94 03/10/18 15:12 03/10/18 15:12 03/10/18 15:12 03/10/18 15:12 03/10/18 15:12 Microbiology 03/09/18 12:10 Gram Stain - Final Pleural Fluid - Aspirate 03/09/18 12:10 Mycobacterial Smear (JANINA) - Final Pleural Fluid - Aspirate Laboratory Results 03/09/18 05:05 03/09/18 05:05 03/09/18 03/10/18 03/11/18 05:59 05:59 05:59 Intake Total 700 1650 200 Output Total 1335 50 Balance 700 315 150 PT 15.4 SEC (12.0-15.0) H 03/09/18 05:05 INR 1.20 (0.83-1.16) H 03/09/18 05:05 - Physical Exam Constitutional: no apparent distress Eyes: PERRL Ears, Nose, Mouth, Throat: moist mucous membranes Cardiovascular: regular rate and rhythym Respiratory: other (decreased BS base right lung. CT in place with sanginous drainage) Gastrointestinal: normoactive bowel sounds Genitourinary: no bladder fullness Skin: warm Musculoskeletal: full muscle strength Neurologic: AAOx3, CN II-XII Intact Psychiatric: interacting appropriately ICD10 Worksheet Patient Problems: Problems Problem Status Onset Hypoxemia Acute Recurrent pleural effusion on right Acute Dyspnea on exertion Acute Pleural effusion Acute Pleural effusion on right Acute
--- NOTE | 2018-03-10 16:37 | SOAPPROG ---
SOAP Progress Note Assessment/Plan: Assessment: recurrent rt pleural effusion Plan:vats in am 03/08/18 17:38 03/10/18 16:35 Looks good status post right pleural effusion drainage and biopsy/minimal drainage at this point/afebrile/no air leak/urine output good Chest x-ray shows full expansion with no significant fluid Plan await the biopsy report Objective: Vital Signs Temp Pulse Resp BP Pulse Ox 37.4 C 91 24 H 122/68 H 94 03/10/18 15:12 03/10/18 15:12 03/10/18 15:12 03/10/18 15:12 03/10/18 15:12 Microbiology 03/09/18 12:10 Gram Stain - Final Pleural Fluid - Aspirate 03/09/18 12:10 Mycobacterial Smear (JANINA) - Final Pleural Fluid - Aspirate Laboratory Results 03/09/18 05:05 03/09/18 05:05 03/09/18 03/10/18 03/11/18 05:59 05:59 05:59 Intake Total 700 1650 200 Output Total 1335 50 Balance 700 315 150 PT 15.4 SEC (12.0-15.0) H 03/09/18 05:05 INR 1.20 (0.83-1.16) H 03/09/18 05:05 ICD10 Worksheet Patient Problems: Problems Problem Status Onset Hypoxemia Acute Recurrent pleural effusion on right Acute Dyspnea on exertion Acute Pleural effusion Acute Pleural effusion on right Acute
[2018-03-10] MEDS: OLANZapine 2.5 MG TAB PO SCH (21:24)
[2018-03-10] MEDS: ATORVASTATIN CALCIUM 10 MG TAB PO SCH (21:24)
[2018-03-10] MEDS ORDERED: BISACODYL 10 MG SUPP PR PRN (22:12)
[2018-03-10] MEDS ORDERED: LACTULOSE 20 GM/30 ML UDCUP PO PRN (22:12)
[2018-03-10] MEDS ORDERED: MAGNESIUM HYDROXIDE 30 ML UDCUP PO PRN (22:12)
[2018-03-10] MEDS ORDERED: POLYETHYLENE GLYCOL 3350 17 GM PKT PO PRN (22:12)
[2018-03-11] MEDS: HYDROmorphONE/DILAUDID 1 MG/ML INJ IVP PRN ×2 (03:01→14:10)
[2018-03-11] MEDS: SENNOSIDES/DOCUSATE SODIUM TAB PO SCH ×2 (09:52→20:40)
[2018-03-11] MEDS: INSULIN LISPRO 100 UNIT/ML SC SCH ×3 (10:00→18:32)
--- NOTE | 2018-03-11 12:35 | SOAPPROG ---
SOAP Progress Note Assessment/Plan: Assessment: recurrent rt pleural effusion Plan:vats in am 03/08/18 17:38 03/10/18 16:35 Looks good status post right pleural effusion drainage and biopsy/minimal drainage at this point/afebrile/no air leak/urine output good Chest x-ray shows full expansion with no significant fluid Plan await the biopsy report 03/11/18 12:34 afebrile/ vital signs stable/ chest x-ray well expanded/ no air leak / moderate chest tube drainage/ path pending/Comfortable /no air leak 03/11/18 14:58 Objective: Vital Signs Temp Pulse Resp BP Pulse Ox 36.8 C 88 16 100/60 95 03/11/18 11:18 03/11/18 11:18 03/11/18 11:18 03/11/18 11:18 03/11/18 11:18 Microbiology 03/09/18 12:10 Gram Stain - Final Pleural Fluid - Aspirate Laboratory Results 03/09/18 05:05 03/09/18 05:05 03/10/18 03/11/18 03/12/18 05:59 05:59 05:59 Intake Total 1650 1000 Output Total 1335 1260 Balance 315 -260 PT 15.4 SEC (12.0-15.0) H 03/09/18 05:05 INR 1.20 (0.83-1.16) H 03/09/18 05:05 ICD10 Worksheet Patient Problems: Problems Problem Status Onset Hypoxemia Acute Recurrent pleural effusion on right Acute Dyspnea on exertion Acute Pleural effusion Acute Pleural effusion on right Acute
--- NOTE | 2018-03-11 12:54 | HOSPPROG ---
Hospitalist Progress Note Assessment/Plan: #Empyema -recent admission with negative evaluation including: ORION, RF, gram-stain, cytology. No e/o malignancy on CT chest/a/p -VATs 03/09 with chest tube. No acid-fast bacilli seen. Cultures/path pending #DM: A1c 9%. Nutrition consult. Add glargine, SSI #Acute hypoxic resp failure: due to effusion #HTN: low BPs here, stop Lisinopril #DVT ppx: SCDs #Disp: inpatient admission for chest tube, cultures pending Subjective: less SOB today Objective: Vital Signs Temp Pulse Resp BP Pulse Ox 36.8 C 88 16 100/60 95 03/11/18 11:18 03/11/18 11:18 03/11/18 11:18 03/11/18 11:18 03/11/18 11:18 Microbiology 03/09/18 12:10 Gram Stain - Final Pleural Fluid - Aspirate Laboratory Results 03/09/18 05:05 03/09/18 05:05 03/10/18 03/11/18 03/12/18 05:59 05:59 05:59 Intake Total 1650 1000 Output Total 1335 1260 Balance 315 -260 PT 15.4 SEC (12.0-15.0) H 03/09/18 05:05 INR 1.20 (0.83-1.16) H 03/09/18 05:05 - Time Spent With Patient Time Spent with Patient: greater than 25 minutes Time Spent with Patient: Greater than 25 minutes spent on this patients care, greater than 50% of time spent counseling, educating, and coordinating care regarding the above mentioned plan. - Physical Exam Constitutional: no apparent distress Eyes: PERRL Ears, Nose, Mouth, Throat: moist mucous membranes Cardiovascular: regular rate and rhythym, No edema Respiratory: no respiratory distress, other (right-sided chest tube with sanginous drainage. Decreased BS at bases) Gastrointestinal: normoactive bowel sounds Genitourinary: no bladder fullness Skin: warm Musculoskeletal: full muscle strength Neurologic: AAOx3, CN II-XII Intact ICD10 Worksheet Patient Problems: Problems Problem Status Onset Hypoxemia Acute Recurrent pleural effusion on right Acute Dyspnea on exertion Acute Pleural effusion Acute Pleural effusion on right Acute
[2018-03-11] MEDS: INSULIN GLARGINE 100 UNITS/ML UNIT SC SCH (13:23)
--- NOTE | 2018-03-11 13:39 | SOAPPROG ---
SOAP Progress Note Assessment/Plan: Assessment/plan: * Empyema * Status post VATS decortication with wedge biopsy him pleural biopsy -pathology is pending * Chest tube-on water seal * Diabetes * Depression * Hypertension * VT prophylaxis * Stress ulcer prophylaxis * Ambulation Subjective: Resting comfortably in chair. Comfortable. Pain well tolerated. Objective: Vital Signs Temp Pulse Resp BP Pulse Ox 36.8 C 88 16 100/60 95 03/11/18 11:18 03/11/18 11:18 03/11/18 11:18 03/11/18 11:18 03/11/18 11:18 Microbiology 03/09/18 12:10 Gram Stain - Final Pleural Fluid - Aspirate Laboratory Results 03/09/18 05:05 03/09/18 05:05 03/10/18 03/11/18 03/12/18 05:59 05:59 05:59 Intake Total 1650 1000 Output Total 1335 1260 Balance 315 -260 PT 15.4 SEC (12.0-15.0) H 03/09/18 05:05 INR 1.20 (0.83-1.16) H 03/09/18 05:05 - Time Spent With Patient Time Spent With Patient: 25 min of time spent with patient, over 1/2 involved with coordination of care or counseling Physical Exam - Physical Exam General Appearance: alert, no apparent distress EENT: PERRL/EOMI Neck: non-tender, full range of motion, supple, normal inspection Respiratory: crackles (Base), No respiratory distress, No wheezing Cardiac/Chest: normal peripheral pulses, regular rate, rhythm, systolic murmur Peripheral Pulses: 2+: carotid (R), carotid (L), femoral (R), femoral (L), dorsalis-pedis (R), dorsalis-pedis (L) Abdomen: normal bowel sounds, non-tender, soft Male Genitalia: deferred Rectal: deferred Skin: normal color, warm/dry Extremities: normal range of motion, non-tender, normal inspection, normal capillary refill Neuro/Psych: no motor/sensory deficits, alert, normal mood/affect, oriented x 3 ICD10 Worksheet Patient Problems: Problems Problem Status Onset Hypoxemia Acute Recurrent pleural effusion on right Acute Dyspnea on exertion Acute Pleural effusion Acute Pleural effusion on right Acute
--- NOTE | 2018-03-11 16:55 | ASMTCMCOM ---
CM Note CM Note Notes: CM chart review. CM reviewed with RN, still has chest tube, discharge likely home independent 03/12. CM to follow. D/C Plan: Independent. Date Signed: 03/11/2018 04:54 PM Electronically Signed By:Natacha Negro
[2018-03-11] MEDS: OLANZapine 2.5 MG TAB PO SCH (20:40)
[2018-03-11] MEDS: ATORVASTATIN CALCIUM 10 MG TAB PO SCH (20:40)
--- NOTE | 2018-03-12 08:52 | SOAPPROG ---
SOAP Progress Note Assessment/Plan: Assessment: 77 y/o M s/p R VATS for recurrent pleural effusion POD #3 S: Sitting up in chair. No complaints. O: Alert Afebrile Chest: CTA bilaterally, chest tube to LWS, no air leak, 80cc out in last 24 hours, no increased WOB, dressings cdi Abdomen: soft, nontender Plan: Await pathology and culture results. Discussed with pt and our suspicion for malignancy. Continue chest tubes for now. 03/12/18 08:48 Objective: Vital Signs Temp Pulse Resp BP Pulse Ox 36.6 C 97 18 118/55 L 94 03/12/18 08:00 03/12/18 08:00 03/12/18 08:00 03/12/18 08:00 03/12/18 08:00 Microbiology 03/09/18 12:10 Gram Stain - Final Pleural Fluid - Aspirate Laboratory Results 03/09/18 05:05 03/09/18 05:05 03/11/18 03/12/18 03/13/18 05:59 05:59 05:59 Intake Total 1000 250 Output Total 1260 1880 Balance -260 -1630 PT 15.4 SEC (12.0-15.0) H 03/09/18 05:05 INR 1.20 (0.83-1.16) H 03/09/18 05:05 ICD10 Worksheet Patient Problems: Problems Problem Status Onset Hypoxemia Acute Recurrent pleural effusion on right Acute Dyspnea on exertion Acute Pleural effusion Acute Pleural effusion on right Acute
[2018-03-12] MEDS: SENNOSIDES/DOCUSATE SODIUM TAB PO SCH ×2 (09:18→20:46)
[2018-03-12] MEDS: INSULIN GLARGINE 100 UNITS/ML UNIT SC SCH (09:19)
[2018-03-12] MEDS: INSULIN LISPRO 100 UNIT/ML SC SCH ×3 (09:19→18:56)
--- NOTE | 2018-03-12 14:11 | HOSPPROG ---
Hospitalist Progress Note Assessment/Plan: #Empyema -recent evaluation negative: ORION, RF, gram-stain, cytology. No e/o malignancy on CT chest/a/p -VATs 03/09 with chest tube. No acid-fast bacilli seen. Cytology pending -cont CT per surgery #DM: A1c 9%. Nutrition consult. Improved with addition of glargine #Acute hypoxic resp failure: due to effusion #HTN: low BPs here, stop Lisinopril #DVT ppx: SCDs #Disp: inpatient admission for chest tube, cultures pending Subjective: walking without significant SOB Objective: Vital Signs Temp Pulse Resp BP Pulse Ox 37.2 C 91 16 123/63 H 95 03/12/18 11:32 03/12/18 11:32 03/12/18 11:32 03/12/18 11:32 03/12/18 11:32 Microbiology 03/09/18 12:10 Gram Stain - Final Pleural Fluid - Aspirate Laboratory Results 03/09/18 05:05 03/09/18 05:05 03/11/18 03/12/18 03/13/18 05:59 05:59 05:59 Intake Total 1000 250 Output Total 1260 1880 Balance -260 -1630 PT 15.4 SEC (12.0-15.0) H 03/09/18 05:05 INR 1.20 (0.83-1.16) H 03/09/18 05:05 - Physical Exam Constitutional: no apparent distress Eyes: PERRL Ears, Nose, Mouth, Throat: moist mucous membranes Cardiovascular: regular rate and rhythym Respiratory: no respiratory distress, other (CT chest in place) Gastrointestinal: normoactive bowel sounds Genitourinary: no bladder fullness Skin: warm Musculoskeletal: full muscle strength Neurologic: AAOx3, CN II-XII Intact Psychiatric: interacting appropriately ICD10 Worksheet Patient Problems: Problems Problem Status Onset Hypoxemia Acute Recurrent pleural effusion on right Acute Dyspnea on exertion Acute Pleural effusion Acute Pleural effusion on right Acute
[2018-03-12] MEDS: OLANZapine 2.5 MG TAB PO SCH (20:46)
[2018-03-12] MEDS: ATORVASTATIN CALCIUM 10 MG TAB PO SCH (20:46)
[2018-03-13] MEDS: INSULIN GLARGINE 100 UNITS/ML UNIT SC SCH (08:52)
[2018-03-13] MEDS: INSULIN LISPRO 100 UNIT/ML SC SCH ×3 (08:53→18:17)
[2018-03-13] MEDS: SENNOSIDES/DOCUSATE SODIUM TAB PO SCH ×2 (08:54→21:03)
--- NOTE | 2018-03-13 09:26 | HOSPPROG ---
Hospitalist Progress Note Assessment/Plan: # pleural effusion s/p VATS and now with CT - concern for malig given intra-op findings - cont CT to suction per gen surg - f/u pathology # DM - A1c 9% - glucs better with glargine; may need to increase - on amaryl, not metformin - will need to discuss further with patient # AHRF - better s/p VATs # htn - holding lisinopril, will need to restart soon # bowel/bladder - constipated, aggressive bowel reg # dvt ppx - SCDs Subjective: no pain at CT site; concerned regarding diagnosis; seen with Objective: Vital Signs Temp Pulse Resp BP Pulse Ox 36.8 C 91 16 141/76 H 93 03/13/18 07:34 03/13/18 07:34 03/13/18 07:34 03/13/18 07:34 03/13/18 07:34 Microbiology 03/09/18 12:10 Gram Stain - Final Pleural Fluid - Aspirate Laboratory Results 03/09/18 05:05 03/09/18 05:05 03/12/18 03/13/18 03/14/18 05:59 05:59 05:59 Intake Total 250 250 Output Total 1880 120 Balance -1630 130 PT 15.4 SEC (12.0-15.0) H 03/09/18 05:05 INR 1.20 (0.83-1.16) H 03/09/18 05:[address] C/A/P reviewed CXR personally reviewed - Physical Exam Constitutional: no apparent distress, appears nourished Cardiovascular: regular rate and rhythym, no murmur, rub, or gallop Respiratory: no respiratory distress, other (mildly diminished R sided BS; R sided CT), No expiratory wheeze, No inspiratory crackles, No rhonchi Gastrointestinal: normoactive bowel sounds ICD10 Worksheet Patient Problems: Problems Problem Status Onset Pleural effusion Acute Pleural effusion on right Acute Dyspnea on exertion Acute Recurrent pleural effusion on right Acute Hypoxemia Acute
--- NOTE | 2018-03-13 10:42 | SOAPPROG ---
SOAP Progress Note Assessment/Plan: Assessment/Plan: 77 y/o M s/p R VATS for recurrent pleural effusion POD #4 Chest tube drainage down. No air leak. Pathology pending. If malignant, will likely d/c chest tubes soon and plan for treatment. If not malignant, might continue chest tubes to leave option for pleurodesis via chest tube instillation of irritant. Still, if needing good pleurodesis might need to return to OR. Ultimately, patient is doing fine from surgery. Await pathology for further planning. S: Sitting up in chair. Mild SOB c chest tubes in. Pain controlled. O: alert, nad no wob, no air leak rrr abd soft, nt wounds well dressed 03/13/18 10:38 Objective: Vital Signs Temp Pulse Resp BP Pulse Ox 36.8 C 91 16 141/76 H 93 03/13/18 07:34 03/13/18 07:34 03/13/18 07:34 03/13/18 07:34 03/13/18 07:34 Microbiology 03/09/18 12:10 Gram Stain - Final Pleural Fluid - Aspirate Laboratory Results 03/09/18 05:05 03/09/18 05:05 03/12/18 03/13/18 03/14/18 05:59 05:59 05:59 Intake Total 250 250 Output Total 1880 120 Balance -1630 130 PT 15.4 SEC (12.0-15.0) H 03/09/18 05:05 INR 1.20 (0.83-1.16) H 03/09/18 05:05 ICD10 Worksheet Patient Problems: Problems Problem Status Onset Hypoxemia Acute Recurrent pleural effusion on right Acute Dyspnea on exertion Acute Pleural effusion Acute Pleural effusion on right Acute
--- NOTE | 2018-03-13 18:25 | SOAPPROG ---
SOAP Progress Note Assessment/Plan: Assessment: recurrent rt pleural effusion Plan:vats in am 03/08/18 17:38 03/10/18 16:35 Looks good status post right pleural effusion drainage and biopsy/minimal drainage at this point/afebrile/no air leak/urine output good Chest x-ray shows full expansion with no significant fluid Plan await the biopsy report 03/11/18 12:34 afebrile/ vital signs stable/ chest x-ray well expanded/ no air leak / moderate chest tube drainage/ path pending/Comfortable /no air leak 03/11/18 14:58 03/13/18 18:24 DOING OK/ CYTOLOGY NEGATIVE/ PATH PENDING/ DRAINAGE DECREASED Objective: Vital Signs Temp Pulse Resp BP Pulse Ox 36.9 C 102 H 18 131/82 H 91 L 03/13/18 15:13 03/13/18 15:13 03/13/18 15:13 03/13/18 15:13 03/13/18 15:13 Microbiology 03/09/18 12:10 Gram Stain - Final Pleural Fluid - Aspirate 03/09/18 12:10 Mycobacterial Smear (JANINA) - Final Pleural Fluid - Aspirate Laboratory Results 03/09/18 05:05 03/09/18 05:05 03/12/18 03/13/18 03/14/18 05:59 05:59 05:59 Intake Total 250 250 Output Total 1880 120 Balance -1630 130 PT 15.4 SEC (12.0-15.0) H 03/09/18 05:05 INR 1.20 (0.83-1.16) H 03/09/18 05:05 ICD10 Worksheet Patient Problems: Problems Problem Status Onset Hypoxemia Acute Recurrent pleural effusion on right Acute Dyspnea on exertion Acute Pleural effusion Acute Pleural effusion on right Acute
[2018-03-13] MEDS: OLANZapine 2.5 MG TAB PO SCH (21:01)
[2018-03-13] MEDS: ATORVASTATIN CALCIUM 10 MG TAB PO SCH (21:01)
[2018-03-13] MEDS: MELATONIN 3 MG TAB PO PRN (21:02)
[2018-03-14 05:18] LABS: PLATELET COUNT 328 10^3/uL (150-400)
[2018-03-14] MEDS: SENNOSIDES/DOCUSATE SODIUM TAB PO SCH ×2 (07:31→21:16)
[2018-03-14] MEDS: INSULIN GLARGINE 100 UNITS/ML UNIT SC SCH (07:31)
[2018-03-14] MEDS: INSULIN LISPRO 100 UNIT/ML SC SCH ×3 (07:32→18:43)
[2018-03-14] MEDS ORDERED: CEPACOL LOZENGE PO PRN (10:26)
--- NOTE | 2018-03-14 10:26 | SOAPPROG ---
SOAP Progress Note Assessment/Plan: Assessment: 77 y/o M s/p R VATS for recurrent pleural effusion POD #3 S: Sitting up in chair. No complaints. O: Alert Afebrile Chest: CTA bilaterally, chest tube to LWS, no air leak, 80cc out in last 24 hours, no increased WOB, dressings cdi Abdomen: soft, nontender Plan: Await pathology and culture results. Discussed with pt and our suspicion for malignancy. Continue chest tubes for now. 03/12/18 08:48 03/14/18 10:22 Pt doing well. Denies pain. Biggest complaint is hoarseness in his voice. No increased WOB. Chest clear. Minimal output from chest tube. Cytology negative. Pathology still pending. Pt may need pleurodesis pending path results. Will order cepacol lozenges. Objective: Vital Signs Temp Pulse Resp BP Pulse Ox 36.4 C 94 18 133/79 H 92 03/14/18 07:23 03/14/18 07:23 03/14/18 07:23 03/14/18 07:23 03/14/18 07:23 Microbiology 03/08/18 23:04 Blood Culture - Final Blood 03/08/18 23:09 Blood Culture - Final Blood 03/09/18 12:10 Gram Stain - Final Pleural Fluid - Aspirate 03/09/18 12:10 Mycobacterial Smear (JANINA) - Final Pleural Fluid - Aspirate Laboratory Results 03/14/18 05:00 03/14/18 05:00 03/13/18 03/14/18 03/15/18 05:59 05:59 05:59 Intake Total 250 400 Output Total 120 0 20 Balance 130 400 -20 PT 15.4 SEC (12.0-15.0) H 03/09/18 05:05 INR 1.20 (0.83-1.16) H 03/09/18 05:05 ICD10 Worksheet Patient Problems: Problems Problem Status Onset Hypoxemia Acute Recurrent pleural effusion on right Acute Dyspnea on exertion Acute Pleural effusion Acute Pleural effusion on right Acute
[2018-03-14] MEDS ORDERED: INSULIN GLARGINE 100 UNITS/ML UNIT SC SCH (14:43)
[2018-03-14] MEDS ORDERED: NS 1,000 ML IV ONE (14:45)
--- NOTE | 2018-03-14 14:49 | HOSPPROG ---
Hospitalist Progress Note Assessment/Plan: # pleural effusion s/p VATS and now with CT - concern for malig given intra-op findings - cont CT to suction per gen surg - f/u pathology # tachycardia - concerning for PE given possible malignancy and decreased mobility - give 1L NS - if does not resolve will consider CTA chest - check ECG # DM - A1c 9% - will increase glargine - on amaryl, not metformin - will need to discuss further with patient # AHRF - better s/p VATs # htn - holding lisinopril, will need to restart soon # bowel/bladder - constipated, aggressive bowel reg # dvt ppx - SCDs Subjective: concerned about pathology; eating and drinking well; no other complaints Objective: Vital Signs Temp Pulse Resp BP Pulse Ox 36.5 C 116 H 20 139/83 H 93 03/14/18 11:05 03/14/18 11:05 03/14/18 11:05 03/14/18 11:05 03/14/18 11:05 Microbiology 03/09/18 12:10 Gram Stain - Final Pleural Fluid - Aspirate 03/08/18 23:04 Blood Culture - Final Blood 03/08/18 23:09 Blood Culture - Final Blood 03/09/18 12:10 Mycobacterial Smear (JANINA) - Final Pleural Fluid - Aspirate Laboratory Results 03/14/18 05:00 03/14/18 05:00 03/13/18 03/14/18 03/15/18 05:59 05:59 05:59 Intake Total 250 400 Output Total 120 0 20 Balance 130 400 -20 PT 15.4 SEC (12.0-15.0) H 03/09/18 05:05 INR 1.20 (0.83-1.16) H 03/09/18 05:05 - Physical Exam Constitutional: no apparent distress, appears nourished Cardiovascular: no murmur, rub, or gallop, tachycardia Respiratory: no respiratory distress, no rales or rhonchi, clear to auscultation Gastrointestinal: soft, non-tender abdomen, no palpable masses ICD10 Worksheet Patient Problems: Problems Problem Status Onset Pleural effusion Acute Pleural effusion on right Acute Dyspnea on exertion Acute Recurrent pleural effusion on right Acute Hypoxemia Acute
--- NOTE | 2018-03-14 15:52 | ASMTCMCOM ---
CM Note CM Note Notes: Pt had VATS procedure and currently has a CT, there is concern for malignancy, pathology is pending. No therapies ordered, anticipate pt will dc home w/support of when medically stable. CM available for any changes. DC Plan: Independent Date Signed: 03/14/2018 03:51 PM Electronically Signed By:Fallon Massey RN
--- NOTE | 2018-03-14 16:10 | CPEKG ---
Heart Rate: 107 RR Interval: 561 P-R Interval: 164 QRSD Interval: 110 QT Interval: 352 QTC Interval: 470 P [place]: 42 QRS [place]: -57 T Wave [place]: 79 EKG Severity - ABNORMAL ECG - EKG Impression: SINUS TACHYCARDIA EKG Impression: left axis deviation, poor R-wave progression Electronically Signed By: Sal Grady 14-Mar-2018 16:52:25
[2018-03-14] MEDS ORDERED: NS 1,000 ML IV SCH (16:30)
[2018-03-14] MEDS: ATORVASTATIN CALCIUM 10 MG TAB PO SCH (21:05)
[2018-03-14] MEDS: MELATONIN 3 MG TAB PO PRN (21:06)
[2018-03-14] MEDS: OLANZapine 2.5 MG TAB PO SCH (21:06)
[2018-03-15] MEDS: INSULIN LISPRO 100 UNIT/ML SC SCH ×2 (08:50→13:08)
[2018-03-15] MEDS: SENNOSIDES/DOCUSATE SODIUM TAB PO SCH (09:14)
--- NOTE | 2018-03-15 11:32 | SOAPPROG ---
SOAP Progress Note Assessment/Plan: Assessment: 77 y/o M s/p R VATS for recurrent pleural effusion POD #3 S: Sitting up in chair. No complaints. O: Alert Afebrile Chest: CTA bilaterally, chest tube to LWS, no air leak, 80cc out in last 24 hours, no increased WOB, dressings cdi Abdomen: soft, nontender Plan: Await pathology and culture results. Discussed with pt and our suspicion for malignancy. Continue chest tubes for now. 03/12/18 08:48 03/14/18 10:22 Pt doing well. Denies pain. Biggest complaint is hoarseness in his voice. No increased WOB. Chest clear. Minimal output from chest tube. Cytology negative. Pathology still pending. Pt may need pleurodesis pending path results. Will order cepacol lozenges. 03/15/18 11:30 Sitting in chair. No complaints. Denies pain and SOB. Dr. Fontenot discussed case with pathology yesterday; specimen will have to be sent to [facility] for further evaluation. Chest tube was pulled today. Discharge home today pending normal follow up chest xray. Follow up in our office on Monday. Objective: Vital Signs Temp Pulse Resp BP Pulse Ox 36.7 C 98 18 121/65 H 92 03/15/18 08:00 03/15/18 08:00 03/15/18 08:00 03/15/18 08:00 03/15/18 08:00 Microbiology 03/09/18 12:10 Gram Stain - Final Pleural Fluid - Aspirate 03/08/18 23:04 Blood Culture - Final Blood 03/08/18 23:09 Blood Culture - Final Blood Laboratory Results 03/14/18 05:00 03/14/18 05:00 03/14/18 03/15/18 03/16/18 05:59 05:59 05:59 Intake Total 400 1000 Output Total 0 1022 Balance 400 -22 PT 15.4 SEC (12.0-15.0) H 03/09/18 05:05 INR 1.20 (0.83-1.16) H 03/09/18 05:05 ICD10 Worksheet Patient Problems: Problems Problem Status Onset Hypoxemia Acute Recurrent pleural effusion on right Acute Dyspnea on exertion Acute Pleural effusion Acute Pleural effusion on right Acute
[2018-03-15 12:00] VITALS: BP 121/69
--- NOTE | 2018-03-15 12:11 | ASMTCMCOM ---
CM Note CM Note Notes: Chart reviewed. DC order written. S/P vats procedure. Pathology pending. Suspect malignancy. No needs identified at this time. CM available should needs arise. Plan: Home Independently. Date Signed: 03/15/2018 12:10 PM Electronically Signed By:Augusta Bennett RN
--- NOTE | 2018-03-15 13:15 | GDS ---
[f rep st] DISCHARGE SUMMARY ALL DIAGNOSES: 1. Pleural effusion, status post video-assisted thoracoscopic surgery, as well as chest tube. 2. Tachycardia, resolved. 3. Diabetes mellitus. 4. Acute hypoxic respiratory failure. 5. Hypertension. HOSPITAL COURSE: This is a 77-year-old man with a recurrent pleural effusion. He underwent a VATS w ith biopsy. Cytology from his pleural fluid was negative. Given the appearance during VATS, Dr. Gary stewart is suspicious of malignancy. Pathology is pending at the time of discharge; it has been sent to [facility] for further evaluation. He was initially borderline hypoxic, is doing much better on room air on discharge. VATS procedure was on 03/09/2018. His chest tube was removed on the day of disch arge. Followup chest x-ray showed no evidence of a pneumothorax. He was tachycardic. This is likely due to discomfort from the chest tube. His tachycardia resolved after chest tube was removed. FOLLOWUP: Dr. Fontenot on 03/19/2018, to follow up on his pathology results and come up with a plan for management of his pleural effusion based on pathology. RESULTS PENDING: At the time of discharge: Pathology from pleural biopsy. BILLING: I spent more than 30 minutes on the day of discharge coordinating care. /[id number]/MODL
--- NOTE | 2018-03-17 19:50 | GOP ---
[f rep st] OPERATIVE REPORT DATE OF OPERATION: 03/09/2018 SURGEON: Dimitry Fontenot MD CRUCIBLE PACKER: Myrtle Kidd, PAC. PREOPERATIVE DIAGNOSIS: Recurrent right pleural effusions. POSTOPERATIVE DIAGNOSIS: Recurrent right pleural effusions. Pathology pending. PROCEDURE PERFORMED: A right video-assisted thoracic surgery drainage with pleural biopsies and a we dge lung resection. FINDINGS: The patient had a large recurrent pleural effusion which appeared to be mostly serous. Th e pleural surfaces of the lung and the parietal pleura were completely covered with whitish inflammat ory plaques slightly suggestive of mesothelioma, but appeared to be benign on frozen section. DESCRIPTION OF PROCEDURE: The patient was taken to the operating room where he received a satisfacto ry general endotracheal anesthesia, was placed in the left lateral decubitus position, and prepped an d draped in the usual sterile fashion with a double-lumen endotracheal tube. A short incision was ma de in the 6th intercostal space in the midaxillary line. A trocar was introduced. Good visualizatio n was present. The lung was collapsed. A large volume of serous fluid was suctioned clear, and the bag was sent for cytology. Two other trocars were placed under direct vision. Multiple biopsies of the pleura were then taken and sent to Pathology. A wedge biopsy was taken of the right middle lobe with an Endo-LUCIE stapler, and that too was retrieved and sent to Pathology. Hemostasis was assured. The wound was irrigated. It was not felt appropriate to do a pleurodesis yet without the diagnosis. A 28-Albanian chest tube was brought in through one of the trocar sites and secured to the skin with a 2-0 silk suture. The other trocar sites were infiltrated with 0.5% Marcaine and closed with 4-0 Mo nocryl subcuticular stitches. The wounds were dressed. He tolerated the procedure well. He was astrid en to the recovery room in good condition. There were no complications. /[id number]/MODL
== END 2018-03-15 13:33 | disposition home or self-care (01) | DRG 166 ==
LOC: F3E 18:29
PROVIDERS: ADMIT Internal Medicine; ATTEND Internal Medicine
PROC: 0B9N40Z Drainage of Right Pleura with Drainage Device, Percutaneous Endoscopic Approach (ICD-10-PCS; principal; 2018-03-09 09:45)
PROC: 0BBN4ZX Excision of Right Pleura, Percutaneous Endoscopic Approach, Diagnostic (ICD-10-PCS; principal; 2018-03-09 09:45)
PROC: 0BBD4ZX Excision of Right Middle Lung Lobe, Percutaneous Endoscopic Approach, Diagnostic (ICD-10-PCS; principal; 2018-03-09 09:45)
DX: J90 Pleural effusion, not elsewhere classified (principal); J96.01 Acute respiratory failure with hypoxia; J43.9 Emphysema, unspecified; R00.0 Tachycardia, unspecified; E11.9 Type 2 diabetes mellitus without complications; I10 Essential (primary) hypertension; E78.5 Hyperlipidemia, unspecified; Z87.891 Personal history of nicotine dependence; Z80.42 Family history of malignant neoplasm of prostate
CPT/HCPCS: J0690; J1170; J1815; J1885; J2370; J2405; J2704; J3010

== ENCOUNTER → 2018-03-19 | Outpatient (CLI) | payer OTHER | LOC: FLAB 14:05 | PROVIDERS: ATTEND Surgery | DX: Z09 Encounter for follow-up examination after completed treatment for conditions other than malignant neoplasm (principal); J90 Pleural effusion, not elsewhere classified; J98.11 Atelectasis ==

== ENCOUNTER → 2018-03-30 | Outpatient (CLI) | payer OTHER | LOC: FIMAGING 14:23 | PROVIDERS: ATTEND Surgery | DX: J90 Pleural effusion, not elsewhere classified (principal); Z48.89 Encounter for other specified surgical aftercare ==

== ENCOUNTER → 2018-04-04 | Outpatient (CLI) | payer OTHER | LOC: FIMAGING 07:38 | PROVIDERS: ATTEND Surgery | DX: J90 Pleural effusion, not elsewhere classified (principal); C45.9 Mesothelioma, unspecified ==